=== PATIENT | female | born 1970 | race Asian ===

== ENCOUNTER 2023-05-11 10:11 | Emergency (ER) | payer OTHER ==
[2023-05-11 10:24] VITALS: BP 140/74; O2SAT 98
[2023-05-11] MEDS ORDERED: predniSONE 20 MG TABLET PO STA (10:33)
--- NOTE | 2023-05-11 10:34 | ED Physician Documentation ---
PD HPI WOUND RECHECK - Stated complaint Stated Complaint: FACIAL SWELLING - Chief complaint Chief Complaint: Wound - Histroy obtained from History obtained from: Patient - Additional information Additional information: On a flight 2 days ago she used a heated mask on top of her make-up and then at the end of the flight she developed facial swelling and itchiness which has not responded to Benadryl at home. No sore throat or feeling of swollen throat. No history of similar reactions. PD PAST MEDICAL HISTORY - Past Medical History Past Medical History: No - Past Surgical History Past Surgical History: No - Present Medications Home Medications: Ambulatory Orders Medication Instructions Recorded Confirmed predniSONE [Deltasone] 60 mg PO DAILY 5 Days #15 tablet 05/11/23 - Allergies Allergies/Adverse Reactions: Allergies Allergy/AdvReac Type Severity Reaction Status Date / Time No Known Drug Allergies Allergy Verified 05/11/23 10:20 - Social History Does the pt smoke?: No Smoking Status: Never smoker Does the pt drink ETOH?: No Does the pt have substance abuse?: No - Immunizations Immunizations are current?: Yes - POLST Patient has POLST: No PD ED PE NORMAL - Vitals Vital signs reviewed: Yes - General General: Alert and oriented X 3, No acute distress - HEENT HEENT: PERRL, EOMI, Other (Mild bilateral periorbital angioedema, oropharynx normal. No conjunctivitis.) - Neuro Neuro: Alert and oriented X 3, Normal speech Results - Vitals Vitals: Vital Signs - 24 hr 05/11/23 10:16 Temperature 36.0 C L Heart Rate 82 Respiratory 20 Rate Blood Pressure 140/74 H O2 Saturation 98 Oxygen O2 Source Room air Departure - Departure Disposition: 01 Home, Self Care Clinical Impression: Allergic reaction Qualifiers: Encounter type: initial encounter Qualified Code(s): T78.40XA - Allergy, unspecified, initial encounter Condition: Good Record reviewed to determine appropriate education?: Yes Instructions: ED Allergic Reaction Local Other Prescriptions: predniSONE [Deltasone] 60 mg PO DAILY 5 Days #15 tablet Comments: I sent the prescription electronically to [facility] in [place], but she do not need to take any more steroids until tomorrow as you had a dose here and it is just once a day. Return for new or worsening symptoms.
== END 2023-05-11 11:02 | disposition home or self-care (01) ==
LOC: ED 10:11
DX: T78.40XA Allergy, unspecified, initial encounter (principal)
CPT/HCPCS: 99282; 99283; J7512